=== PATIENT | female | born 1980 | race Caucasian/White ===

== ENCOUNTER 2024-09-14 11:47 | Outpatient (AMB) | payer OTHER, SELFPAY ==
--- NOTE | 2024-09-14 12:07 | MHC.PC.OV ---
Vital Signs 09/14/24 12:15 09/14/24 12:41 Height 5 ft 6 in Weight 179 lb 2 oz BMI 28.9 BP 118/96 H 122/90 H Blood Pressure Location Lt brachial Position Sitting Pulse 84 Pulse Source Pulse Oximeter Temp 98.6 F Temp Source Temporal Artery Scan Pulse Oximetry (%) 97 Oxygen Delivery Method Room Air Intake Visit Reasons: requesting PE Intake Note: Eliza presents in the office today to establish care. Allergies No Known Allergies Allergy (Verified 09/14/24 12:10) Tobacco use date assessed: 09/14/24 Dental Screening Dental Screen Date: 09/14/24 Did you have a dental visit in the last 12 months?: No Did you have a dental problem in the last 6 months where you did not have access to dental care?: No Was dental information given to patient?: Patient has dentist HPI HPI Comments History of Present Illness Details This is a 43-year-old female with no significant past medical history presenting to establish care. Her blood pressure today is initially 118/96 and 122/90 when repeated. She denies history of hypertension. Her father and 2 of her brothers have hypertension. Patient is a nonsmoker. She drinks 1-2 alcoholic beverages per week. She walks 30 minutes per day. She is trying to follow a healthy diet, but she admits to weight gain within the past year. Patient endorses menstrual headaches, but she does not have headaches otherwise. No vision changes, and she had an eye exam recently, and she was told everything was normal. Denies chest pain or shortness of breath. Patient has had irregularity with menstrual cycle recently. She skipped a period, and then got it a couple of days ago. She also had a period that lasted a week and a half. She goes to Gynecology at [facility], and she is due to schedule an appointment. She has never had a mammogram which was ordered as part of today's visit. Patient has skin tags and moles on her face and neck. She has not been examined by Dermatology. 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 She lives with her and her almost 12-year-old son. Receives influenza vaccine. Tdap due and is administered today. ROS: Constitutional: No unexplained weight loss, fever, chills, fatigue or night sweats. Eyes: No vision changes, blurry vision, double vision, eye pain, eye redness, eye discharge. ENT: No hearing loss, sneezing, congestion, runny nose or sore throat. Respiratory: No shortness of breath, cough or sputum production. Cardiovascular: No chest pain, chest pressure or chest discomfort. No palpitations or pedal edema. Gastrointestinal: No anorexia, nausea, vomiting or diarrhea. No abdominal pain or blood in stool. Genitourinary: No dysuria, hematuria, urinary frequency. Neurologic: No dizziness, syncope, unilateral weakness, ataxia, numbness or tingling in the extremities. Musculoskeletal: No muscle pain, back pain, joint pain or swelling. Hematologic/Lymphatics: No bleeding or bruising. No painful lymph nodes. Skin: No rash or itching. Endocrine: No cold or heat intolerance. No polyuria or polydipsia. Psychiatric: No depression or anxiety. No SI/HI. Physical exam: Constitutional: Alert, in no distress. Head: Normocephalic. Eyes: Pupils are equal, round and reactive to light. Extraocular muscles intact. Ear, Nose and Throat: Canals clear. TMs normal. Normal nasal mucosa. No nasal discharge. No oral lesions. Neck: Supple, Full range of motion. No lymphadenopathy. No palpable thyroid masses. Respiratory: Clear to auscultation. Cardiovascular: S1 S2 regular. No murmurs. No carotid bruits. Gastrointestinal: Abdomen soft, non-tender, non-distended. Normal bowel sounds. No palpable masses. Neurologic: No focal neurological deficits. Symmetric patellar reflexes. Moves all extremities spontaneously. Sensation intact bilaterally. Skin: Numerous skin tags on the neck and chest. She has 3 moles on the left side of the neck and chin which are larger than a pencil eraser and have some irregularities with color, but she says they have always looked about the same. Musculoskeletal: No gross deformities. Normal range of motion. Extremities: Warm and well perfused. No clubbing, cyanosis or edema. 3+ peripheral pulses bilaterally. Psychiatric: Normal mood and affect [facility] Medical History (Updated 09/14/24 @ 13:38 by ITZEL Cowan) Obesity Elevated blood pressure reading without diagnosis of hypertension Generalized headaches Routine physical examination Irregular menses Exercise-induced asthma Surgical History (Updated 09/14/24 @ 12:22 by Julieth Brumfield MA) History of laparoscopy Family History (Updated 09/14/24 @ 12:14 by Julieth Brumfield MA) Father Hypertension Hyperlipemia Brother Hypertension Hyperlipemia Mother COPD (chronic obstructive pulmonary disease) Autoimmune disease Colitis Rheumatoid arthritis Social History (Updated 09/14/24 @ 12:14 by Julieth Brumfield MA) Housing: House Alcohol intake: current Patient Tobacco Use Status: Never used Tobacco e-Cigarette/Vaping Use: Never Used Second Hand Smoke Exposure: Yes service: No Current occupational status: employed 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 1. Little interest or pleasure in doing things: not at all 2. Feeling down, depressed, or hopeless: not at all 3. Trouble falling or staying asleep, or sleeping too much: several days 4. Feeling tired or having little energy: several days 5. Poor appetite or overeating: not at all 6. Feeling bad about yourself - or that you are a failure or have let yourself or your family down: not at all 7. Trouble concentrating on things, such as reading the newspaper or watching television: not at all 8. Moving or speaking so slowly that other people could have noticed. Or the opposite - being so fidgety or restless that you have been moving around a lot more than usual: not at all 9. Thoughts that you would be better off or of hurting yourself in some way: not at all Total score: 2 Depression Screening Interpretation: Negative Depression Screening Done: Yes [id number] - PHQ-9 Billing: Yes Source: Developed by Drs. Rusty Singh, Clari Flower, Abhinav Norton and colleagues, with an educational elizabeth from [employer]. Thrive Questionnaire Date Thrive assessed: 09/14/24 I am a: Patient What is your living situation today?: I have a steady place to live Within the past 12 months, did the food you bought not last and you didn't have the money to get more?: Never true Within the past 12 months, did you worry whether your food would run out before you got money to buy more?: Never true Do you have trouble paying for medicines?: No Do you have trouble getting transportation to medical appointments?: No Do you have trouble paying your heating and electricity bill?: No Do you have trouble taking care of your child, family member or friend?: No Do you have trouble with day-to-day activities such as bathing, preparing meals, shopping, managing finances, etc.?: No Are you currently unemployed and looking for a job?: No Are you interested in more education?: No Please select the resources that you would like help with: None Currently or been in a relationship where the following occur: No concerns reported THRIVE Score: 0 AUDIT C Alcohol Use Questionnaire (AUDIT-C) 3. How often do you have six or more drinks on one occasion?: Never Total Score: 0 Score Reviewed/Action Taken: No SHANE-7 AMB Questionnaire SHANE-7 Date SHANE - 7 assessed: 09/14/24 Feeling nervous, anxious, or on edge: 0 = Not at all Not being able to stop or control worryin = Not at all Worrying too much about different things: 0 = Not at all Trouble relaxin = Several days Being so restless that it is hard to sit still: 0 = Not at all Becoming easily annoyed or irritable: 1 = Several days Feeling afraid as if something awful might happen: 0 = Not at all Total SHANE-7 score (0-4 normal; 5-9 mild; 10-14 moderate; 15-21 severe): 2 Source: Developed by Drs. Rusty Singh, Clari Flower, Abhinav Norton and colleagues, with an educational elizabeth from [employer]. SHANE-7 Assessment Billing SHANE-7 Assessment Tool: SHANE-7 Assessment [id number] Physical exam (Primary Care) Vital Signs: Last Vital Signs Temp 98.6 F 09/14/24 12:15 Pulse 84 09/14/24 12:15 BP 118/96 H 09/14/24 12:15 Pulse Ox 97 09/14/24 12:15 Oxygen Delivery Method Room Air 09/14/24 12:15 BMI result Body Mass Index 28.9 Tobacco/Smoking Status: Tobacco use Status Tobacco use date assessed 09/14/24 09/14/24 12:18 Patient Tobacco Use Status Never used Tobacco 09/14/24 12:18 e-Cigarette/Vaping Use Never Used 09/14/24 12:18 PHQ-9: PHQ-9 Score PHQ-9: Total score 2 09/14/24 12:09 Depression Screening Interpretation: Negative Thrive Assessment: Date of Thrive Assessment Date Thrive assessed 09/14/24 09/14/24 12:09 Currently or been in a relationship where the following occur: No concerns reported Immunizations Boostrix Tdap 2.5 Lf unit-8 mcg-5 Lf/0.5 mL intramuscular syringe Performing Provider: ITZEL Cowan Performing Location: [facility] Administered by: Julieth Brumfield MA on 09/14/24 13:01 Dose Route Admin Location Dispensed Lot Number Expiration Date [facility] [employer]eron[employer] Test Engineer 0.5 mL IM Left Deltoid 0.5 mL [id number] 10/14/26 [id number] [employer] VIS Given Date VIS Provided VIS Publication Date 09/14/24 Single Vaccine 20 Eligibility Eligibility Date Funding Source Not [facility] Eligible 09/14/24 Private Coding Level of Care Code New Pt Prev Care 40-64y(44825) Diagnoses Routine physical examination Z00.00 Irregular menses N92.6 Generalized headaches R51.9 Elevated blood pressure reading without diagnosis of hypertension R03.0 Additional Codes SHANE-7 Assessment Billing - SHANE-7 Assessment Tool: SHANE-7 Assessment 98211 ([id number]) PHQ-9 - 25026 - PHQ-9 Billing: Yes ([id number]) Assessment & Plan Assessment & Plan (1) Routine physical examination: Code(s): Z00.00 - Encounter for general adult medical examination without abnormal findings Category: Medical Plan: Patient is seen today for a routine physical. As part of this visit we reviewed the following issues, which are considered and essential part of preventative health in this age group: - Breast Cancer screening - Annual Credit Union Examiner exam - Screening for colon cancer - denies family history. Screening to begin age 4546 years old. - Cholesterol screening - Osteoporosis prevention including calcium/vitamin D intake, weight bearing exercise & smoking cessation - Nutritional and exercise counseling - Counseling of injury prevention including fire prevention, smoke alarms and seat belt usage - Screening for depression - Education about skin cancer - Recommendations about immunizations - Recommendation of an eye exam - Screening for substance abuse (2) Irregular menses: Code(s): N92.6 - Irregular menstruation, unspecified Category: Medical Plan: We discussed the possibility of perimenopause. much less likely given that she endorses menses today. We will check HCG to be cautious. Check TSH, LH, FSH and estrogen. (3) Generalized headaches: Code(s): R51.9 - Headache, unspecified Category: Medical Plan: Associated with menses. Preventative strategies and treatment strategies reviewed. [id number] analgesics are effective for her. (4) Elevated blood pressure reading without diagnosis of hypertension: Code(s): R03.0 - Elevated blood-pressure reading, without diagnosis of hypertension Category: Medical Plan: Patient has a family history of hypertension. Recommended decreasing caffeine and following a low-sodium diet. Exercise to promote healthy weight. Avoid processed foods. Drink plenty of water. Recheck in 4-6 weeks. Check labs. Plan Follow up in 4-6 weeks for a blood pressure check. Orders: Orders MM screening mammo BI Today Z12.31 - Encounter for screening mammogram for malignant neoplasm of breast Vitamin D 25-OH (D2 and D3) Today I10 - Essential (primary) hypertension, M85.80 - Other specified disorders of bone density and structure, unspecified site, N92.6 - Irregular menstruation, unspecified, R51.9 - Headache, unspecified, Z00.00 - Encounter for general adult medical examination without abnormal findings Vitamin B12 Today I10 - Essential (primary) hypertension, N92.6 - Irregular menstruation, unspecified, R51.9 - Headache, unspecified, Z00.00 - Encounter for general adult medical examination without abnormal findings, Z91.89 - Other specified personal risk factors, not elsewhere classified Complete Blood Count no Diff Today I10 - Essential (primary) hypertension, N92.6 - Irregular menstruation, unspecified, R51.9 - Headache, unspecified, Z00.00 - Encounter for general adult medical examination without abnormal findings Lutenizing Hormone Today I10 - Essential (primary) hypertension, N92.6 - Irregular menstruation, unspecified, R51.9 - Headache, unspecified, Z00.00 - Encounter for general adult medical examination without abnormal findings TDaP Immunization Today Z23 - Encounter for immunization TSH reflex Free T4 Today I10 - Essential (primary) hypertension, N92.6 - Irregular menstruation, unspecified, R51.9 - Headache, unspecified, Z00.00 - Encounter for general adult medical examination without abnormal findings Microalbumin, Random (w Creat) Today E11.9 - Type 2 diabetes mellitus without complications, I10 - Essential (primary) hypertension, N92.6 - Irregular menstruation, unspecified, R51.9 - Headache, unspecified, Z00.00 - Encounter for general adult medical examination without abnormal findings Lipid Panel Today E78.5 - Hyperlipidemia, unspecified, I10 - Essential (primary) hypertension, N92.6 - Irregular menstruation, unspecified, R51.9 - Headache, unspecified, Z00.00 - Encounter for general adult medical examination without abnormal findings Comprehensive Met. Panel Today I10 - Essential (primary) hypertension, N92.6 - Irregular menstruation, unspecified, R51.9 - Headache, unspecified, Z00.00 - Encounter for general adult medical examination without abnormal findings Follicle Stimulating Hormone Today I10 - Essential (primary) hypertension, N92.6 - Irregular menstruation, unspecified, R51.9 - Headache, unspecified, Z00.00 - Encounter for general adult medical examination without abnormal findings Estrogen Today I10 - Essential (primary) hypertension, N92.6 - Irregular menstruation, unspecified, R51.9 - Headache, unspecified, Z00.00 - Encounter for general adult medical examination without abnormal findings HCG Quantitative Today N92.6 - Irregular menstruation, unspecified Referrals Dermatology Referral Z12.83 - Encounter for screening for malignant neoplasm of skin
[2024-09-14 12:15] VITALS: BP 118/96; PULSE 84; TEMP 37; O2SAT 97; BMI 28.9
[2024-09-14 12:41] VITALS: BP 122/90
== END 2024-09-14 12:56 | disposition home or self-care (01) ==
LOC: HO.HMCFM 11:47
PROVIDERS: Visit Provider Physician Assistant Medical
DX: Z00.00 Encounter for general adult medical examination without abnormal findings (principal); N92.6 Irregular menstruation, unspecified; R51.9 Headache, unspecified; R03.0 Elevated blood-pressure reading, without diagnosis of hypertension; Z23 Encounter for immunization

== ENCOUNTER → 2024-09-14 11:47 | Outpatient (BNVA) | payer OTHER, SELFPAY | PROVIDERS: Visit Provider Physician Assistant Medical | DX: Z00.00 Encounter for general adult medical examination without abnormal findings (principal); N92.6 Irregular menstruation, unspecified; R51.9 Headache, unspecified; R03.0 Elevated blood-pressure reading, without diagnosis of hypertension; Z23 Encounter for immunization | CPT/HCPCS: 90471; 90715; 96127 ==

== ENCOUNTER 2024-09-18 08:19 | Outpatient (REF) | payer OTHER, SELFPAY ==
[2024-09-18 11:25] LABS: Hematocrit 42.4 % (37.0-47.0); Hemoglobin 14.1 g/dl (12.0-16.0); Mean Corpuscular HGB Conc 33.3 g/dl (31.0-35.0); Mean Corpuscular Hemoglobin 30.1 pg (27.0-33.0); Mean Corpuscular Volume 90.4 fL (80.0-98.0); Mean Platelet Volume 10.3 fL (9.4-12.3); Platelet Count 347 X10*3/uL (160-400); Red Blood Count 4.69 X10*6/uL (4.20-5.50); Red Cell Distribution Width 13.4 % (11.0-16.0); White Blood Count 9.2 X10*3/uL (4.8-10.8)
[2024-09-18 11:41] LABS: Creatinine Urine 199.34 mg/dL
[2024-09-18 12:07] LABS: Vitamin B12 272 pg/mL (200-900)
[2024-09-18 12:17] LABS: Alanine Aminotransferase 25 U/L (0-31); Albumin Level 4.1 g/dL (3.5-5.0); Alkaline Phosphatase 56 U/L (39-117); Anion Gap 12 (12-20); Aspartate Amino Transferase 22 U/L (5-31); Bilirubin Total 0.4 mg/dL (0.0-1.0); Blood Urea Nitrogen 15 mg/dL (9-16); Calcium 9.8 mg/dL (8.4-10.2); Carbon Dioxide 24 mmol/L (22-29); Chloride 106 mmol/L (96-108); Cholesterol 217 mg/dL (<200); Estimated Glomerular Filt Rate > 60; Glucose Random 103 mg/dL (60-115); HCG Quantitative < 2 mIU/mL; HDL Cholesterol 41 mg/dL (>40); LDL Cholesterol Calculated 155 mg/dL (<100); Potassium 3.7 mmol/L (3.3-5.1); Sodium 138 mmol/L (135-145); TSH reflex Free T4 0.94 uIU/mL (0.32-4.0); Total Protein 7.4 g/dL (6.5-8.0); Triglycerides 109 mg/dL (<150)
[2024-09-19 12:28] LABS: Follicle Stimulating Hormone 6.4 mIU/mL; Lutenizing Hormone 2.8 mIU/mL
[2024-09-22 14:38] LABS: Vitamin D 25-OH, D2 <4 ng/mL; Vitamin D 25-OH, D3 13 ng/mL; Vitamin D 25-OH, Total 13 ng/mL (30-100)
[2024-09-22 18:53] LABS: Estrogen 155 pg/mL
== END 2024-09-18 08:20 | disposition home or self-care (01) ==
LOC: HO.WFDLDS 08:19
PROVIDERS: Visit Provider Physician Assistant Medical
DX: Z00.00 Encounter for general adult medical examination without abnormal findings (principal); Z91.89 Other specified personal risk factors, not elsewhere classified; N92.6 Irregular menstruation, unspecified; I10 Essential (primary) hypertension; R51.9 Headache, unspecified; E11.9 Type 2 diabetes mellitus without complications; E78.5 Hyperlipidemia, unspecified; M85.80 Other specified disorders of bone density and structure, unspecified site
CPT/HCPCS: 36415; 80053; 80061; 82043; 82306; 82570; 82607; 82672; 83001; 83002; 84443; 84702; 85027

== ENCOUNTER 2024-10-10 07:51 | Outpatient (REF) | payer OTHER, SELFPAY | END 2024-10-10 07:52 | disposition home or self-care (01) | LOC: HO.MAMMO 07:51 | PROVIDERS: PCP Physician Assistant Medical; Visit Provider Physician Assistant Medical | DX: Z12.31 Encounter for screening mammogram for malignant neoplasm of breast (principal) | CPT/HCPCS: 77063; 77067 ==

== ENCOUNTER → 2024-10-10 08:00 | Outpatient (BNV) | payer OTHER, SELFPAY | PROVIDERS: PCP Physician Assistant Medical; Visit Provider Internal Medicine | DX: Z12.31 Encounter for screening mammogram for malignant neoplasm of breast (principal) | CPT/HCPCS: 77063; 77067 ==

== ENCOUNTER 2024-10-30 10:17 | Outpatient (AMB) | payer OTHER, SELFPAY ==
--- NOTE | 2024-10-30 10:24 | MHC.PC.OV ---
Vital Signs 10/30/24 10:27 10/30/24 10:31 10/30/24 10:36 Height 5 ft 6 in Weight 246 lb BMI 39.7 BP 148/96 H 142/96 H 138/92 H Blood Pressure Location Lt brachial Rt brachial Lt brachial Position Sitting Sitting Sitting Pulse 80 Pulse Source Pulse Oximeter Temp 97.5 F Temp Source Temporal Artery Scan Pulse Oximetry (%) 96 Oxygen Delivery Method Room Air Intake Visit Reasons: recheck HTN Intake Note: Eliza presents in the office today for hypertension check. Allergies No Known Allergies Allergy (Verified 10/30/24 10:26) Tobacco use date assessed: 10/30/24 Dental Screening Dental Screen Date: 10/30/24 Did you have a dental visit in the last 12 months?: No Did you have a dental problem in the last 6 months where you did not have access to dental care?: No Was dental information given to patient?: Patient has dentist HPI HPI Comments History of Present Illness Details This is a 44-year-old female with a past medical history of impaired fasting glucose, hyperlipidemia, obesity, vitamin-D deficiency and elevated blood pressure returning for follow up. The patient's blood pressure remains elevated today. This is a new diagnosis of hypertension. She has a strong family history of hypertension. She denies headaches aside from menstrual headaches. No chest pain, shortness of breath, dizziness or vision changes. She has cut back on caffeine since her last visit. Vitamin-D deficiency-she is taking 49546 IU weekly, and there is an order to repeat her vitamin-D level. Hyperlipidemia-this was reviewed over the patient portal. Lifestyle modifications were recommended as well as repeating the cholesterol test in 12 weeks. Impaired fasting glucose-no history of prediabetes or diabetes. Her blood sugar was mildly elevated at 103 on her blood work. ROS: Constitutional: No unexplained weight loss, fever, chills or night sweats. Eyes: No vision changes, blurry vision, double vision, eye pain Respiratory: No shortness of breath Cardiovascular: No chest pain, chest pressure or chest discomfort. No palpitations or pedal edema. Neurologic: No dizziness, syncope, unilateral weakness, ataxia, numbness or tingling in the extremities. Physical exam: Constitutional: Alert, in no distress. Respiratory: Clear to auscultation. Cardiovascular: S1 S2 regular. No murmurs. Psychiatric: Normal mood and affect [facility] Medical History (Updated 10/30/24 @ 13:41 by ITZEL Cowan) Essential hypertension Hyperlipidemia IFG (impaired fasting glucose) Vitamin D deficiency Obesity Elevated blood pressure reading without diagnosis of hypertension Generalized headaches Routine physical examination Irregular menses Exercise-induced asthma Surgical History (Updated 09/14/24 @ 12:22 by Julieth Brumfield MA) History of laparoscopy Family History Father Hypertension Hyperlipemia Brother Hypertension Hyperlipemia Mother COPD (chronic obstructive pulmonary disease) Autoimmune disease Colitis Rheumatoid arthritis Social History (Updated 10/30/24 @ 10:27 by Julieth Brumfield MA) Housing: House Alcohol intake: current Patient Tobacco Use Status: Never used Tobacco e-Cigarette/Vaping Use: Never Used Second Hand Smoke Exposure: Yes service: No Current occupational status: employed 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 Current occupational exposures/hazards: No Cognitive needs: No Hearing needs: No Vision needs: No Questionnaire Thrive Questionnaire Date Thrive assessed: 09/11/24 I am a: Patient What is your living situation today?: I have a steady place to live Within the past 12 months, did the food you bought not last and you didn't have the money to get more?: Never true Within the past 12 months, did you worry whether your food would run out before you got money to buy more?: Never true Do you have trouble paying for medicines?: No Do you have trouble getting transportation to medical appointments?: No Do you have trouble paying your heating and electricity bill?: No Do you have trouble taking care of your child, family member or friend?: No Do you have trouble with day-to-day activities such as bathing, preparing meals, shopping, managing finances, etc.?: No Are you currently unemployed and looking for a job?: No Are you interested in more education?: No Please select the resources that you would like help with: None Currently or been in a relationship where the following occur: No concerns reported THRIVE Score: 0 SHANE-7 AMB Questionnaire SHANE-7 Date SHANE - 7 assessed: 09/14/24 Source: Developed by Drs. Rusty Singh, Clari Flower, Abhinav Norton and colleagues, with an educational elizabeth from [employer]. Physical exam (Primary Care) Vital Signs: Last Vital Signs Temp 97.5 F 10/30/24 10:27 Pulse 80 10/30/24 10:27 BP 138/92 H 10/30/24 10:36 Pulse Ox 96 10/30/24 10:27 Oxygen Delivery Method Room Air 10/30/24 10:27 BMI result Body Mass Index 39.7 Tobacco/Smoking Status: Tobacco use Status Tobacco use date assessed 10/30/24 10/30/24 10:32 Patient Tobacco Use Status Never used Tobacco 10/30/24 10:27 e-Cigarette/Vaping Use Never Used 10/30/24 10:27 Thrive Assessment: Date of Thrive Assessment Date Thrive assessed 09/11/24 10/30/24 10:25 Currently or been in a relationship where the following occur: No concerns reported Office Procedures EKG Details: EKG demonstrates normal sinus rhythm with a ventricular rate of 66 beats per minute [id number], Complete Coding Level of Care Code Est Pt Level 4 (39651) Complex EM visit Add On G2211 Diagnoses Essential hypertension I10 Hyperlipidemia E78.5 IFG (impaired fasting glucose) R73.01 Obesity E66.9 Vitamin D deficiency E55.9 CPT Codes EKG - CPT: 60628-[id number], Complete ([id number]) Assessment & Plan Assessment & Plan (1) Essential hypertension: Code(s): I10 - Essential (primary) hypertension Category: Medical Plan: Baseline EKG done today. Recommended low-sodium diet, avoidance of caffeine and cardiovascular exercise to promote healthy weight. Start amlodipine 5 mg daily. Side effects and administration reviewed. Declined BP cuff for home. (2) Hyperlipidemia: Code(s): E78.5 - Hyperlipidemia, unspecified Category: Medical Plan: Recommended the Mediterranean diet. Avoid full fat dairy products and red meat. Increase lean proteins and fibrous fruits and veggies. Avoid smoking. We discussed that elevated cholesterol is a risk factor for cardiovascular disease. (3) IFG (impaired fasting glucose): Code(s): R73.01 - Impaired fasting glucose Category: Medical Plan: She will return for blood work in 3 weeks at which time we will also check a hemoglobin A1c. (4) Obesity: Code(s): E66.9 - Obesity, unspecified Category: Medical Plan: See above notes regarding lifestyle modifications. (5) Vitamin D deficiency: Code(s): E55.9 - Vitamin D deficiency, unspecified Category: Medical Plan: Continue supplement. Rechecked vitamin-D level as planned. Plan Follow up in 4 weeks for a blood pressure check. Orders: Orders AMB EKG-In Office Today I10 - Essential (primary) hypertension Medications: New amlodipine 5 mg PO DAILY 30 tabs 1RF
[2024-10-30 10:27] VITALS: BP 148/96; PULSE 80; TEMP 36.4; O2SAT 96; BMI 39.7
[2024-10-30 10:31] VITALS: BP 142/96
[2024-10-30 10:36] VITALS: BP 138/92
== END 2024-10-30 11:25 | disposition home or self-care (01) ==
LOC: HO.HMCFM 10:18
PROVIDERS: PCP Physician Assistant Medical; Visit Provider Physician Assistant Medical
DX: I10 Essential (primary) hypertension (principal); E66.9 Obesity, unspecified; Z68.39 Body mass index [BMI] 39.0-39.9, adult; E78.5 Hyperlipidemia, unspecified; R73.01 Impaired fasting glucose; E55.9 Vitamin D deficiency, unspecified

== ENCOUNTER → 2024-10-30 10:17 | Outpatient (BNVA) | payer OTHER, SELFPAY | PROVIDERS: PCP Physician Assistant Medical; Visit Provider Physician Assistant Medical | DX: I10 Essential (primary) hypertension (principal) | CPT/HCPCS: 93005 ==

== ENCOUNTER 2024-11-27 11:21 | Outpatient (AMB) | payer OTHER, SELFPAY ==
--- NOTE | 2024-11-27 11:24 | MHC.PC.OV ---
Vital Signs 11/27/24 11:27 Height 5 ft 6 in Weight 245 lb 6 oz BMI 39.6 BP 118/90 H Blood Pressure Location Lt brachial Position Sitting Pulse 85 Pulse Source Pulse Oximeter Temp 98.6 F Temp Source Temporal Artery Scan Pulse Oximetry (%) 97 Oxygen Delivery Method Room Air Intake Visit Reasons: recheck HTN Intake Note: Eliza presents in the office for a recheck for hypertension. Allergies No Known Allergies Allergy (Verified 11/27/24 11:26) Medication List - Last Reconciled 11/27/24 by ITZEL Cowan amlodipine 7.5 mg PO DAILY cholecalciferol (vitamin D3) 1,250 mcg PO QWEEK 12 weeks Tobacco use date assessed: 11/27/24 Dental Screening Dental Screen Date: 11/27/24 Did you have a dental visit in the last 12 months?: No Did you have a dental problem in the last 6 months where you did not have access to dental care?: No Was dental information given to patient?: Patient declined HPI HPI Comments History of Present Illness Details This is a 44-year-old female with a past medical history of impaired fasting glucose, hyperlipidemia, obesity, vitamin-D deficiency and elevated blood pressure returning for follow up. Hypertension-she started amlodipine 1 month ago. Denies side effects. Blood pressure improved, but diastolic BP is still elevated. She has a strong family history of hypertension. She denies headaches aside from menstrual headaches. No chest pain, shortness of breath, dizziness or vision changes. She has cut back on caffeine since her last visit. Vitamin-D deficiency-she is taking 83252 IU weekly, and there is an order to repeat her vitamin-D level. Hyperlipidemia-this was reviewed over the patient portal. Lifestyle modifications were recommended as well as repeating the cholesterol test in 12 weeks. Impaired fasting glucose-no history of prediabetes or diabetes. Her blood sugar was mildly elevated at 103 on her blood work. ROS: Constitutional: No unexplained weight loss, fever, chills or night sweats. Eyes: No vision changes, blurry vision, double vision, eye pain Respiratory: No shortness of breath Cardiovascular: No chest pain, chest pressure or chest discomfort. No palpitations or pedal edema. Neurologic: No dizziness, syncope, unilateral weakness, ataxia, numbness or tingling in the extremities. Physical exam: Constitutional: Alert, in no distress. Respiratory: Clear to auscultation. Cardiovascular: S1 S2 regular. No murmurs. Psychiatric: Normal mood and affect Extremities: No edema PFSH Medical History (Updated 10/30/24 @ 13:41 by ITZEL Cowan) Essential hypertension Hyperlipidemia IFG (impaired fasting glucose) Vitamin D deficiency Obesity Elevated blood pressure reading without diagnosis of hypertension Generalized headaches Routine physical examination Irregular menses Exercise-induced asthma Surgical History (Updated 09/14/24 @ 12:22 by Julieth Brumfield MA) History of laparoscopy Family History Father Hypertension Hyperlipemia Brother Hypertension Hyperlipemia Mother COPD (chronic obstructive pulmonary disease) Autoimmune disease Colitis Rheumatoid arthritis Social History (Updated 11/27/24 @ 11:26 by Julieth Brumfield MA) Housing: House Alcohol intake: current Patient Tobacco Use Status: Never used Tobacco e-Cigarette/Vaping Use: Never Used Second Hand Smoke Exposure: Yes service: No Current occupational status: employed 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 Current occupational exposures/hazards: No Cognitive needs: No Hearing needs: No Vision needs: No Questionnaire Thrive Questionnaire Date Thrive assessed: 09/11/24 I am a: Patient What is your living situation today?: I have a steady place to live Within the past 12 months, did the food you bought not last and you didn't have the money to get more?: Never true Within the past 12 months, did you worry whether your food would run out before you got money to buy more?: Never true Do you have trouble paying for medicines?: No Do you have trouble getting transportation to medical appointments?: No Do you have trouble paying your heating and electricity bill?: No Do you have trouble taking care of your child, family member or friend?: No Do you have trouble with day-to-day activities such as bathing, preparing meals, shopping, managing finances, etc.?: No Are you currently unemployed and looking for a job?: No Are you interested in more education?: No Please select the resources that you would like help with: None Currently or been in a relationship where the following occur: No concerns reported THRIVE Score: 0 SHANE-7 AMB Questionnaire SHANE-7 Date SHANE - 7 assessed: 09/14/24 Source: Developed by Drs. Rusty Singh, Clari Flower, Abhinav Norton and colleagues, with an educational elizabeth from [employer]. Physical exam (Primary Care) Vital Signs: Last Vital Signs Temp 98.6 F 11/27/24 11:27 Pulse 85 11/27/24 11:27 BP 118/90 H 11/27/24 11:27 Pulse Ox 97 11/27/24 11:27 Oxygen Delivery Method Room Air 11/27/24 11:27 BMI result Body Mass Index 39.6 Tobacco/Smoking Status: Tobacco use Status Tobacco use date assessed 11/27/24 11/27/24 11:30 Patient Tobacco Use Status Never used Tobacco 11/27/24 11:30 e-Cigarette/Vaping Use Never Used 11/27/24 11:30 Thrive Assessment: Date of Thrive Assessment Date Thrive assessed 09/11/24 11/27/24 11:30 Currently or been in a relationship where the following occur: No concerns reported Coding Level of Care Code Est Pt Level 4 (92170) Complex EM visit Add On G2211 Diagnoses Essential hypertension I10 Hyperlipidemia E78.5 IFG (impaired fasting glucose) R73.01 Obesity E66.9 Vitamin D deficiency E55.9 Assessment & Plan Assessment & Plan (1) Essential hypertension: Code(s): I10 - Essential (primary) hypertension Category: Medical Plan: Recommended low-sodium diet, avoidance of caffeine and cardiovascular exercise to promote healthy weight. Increase amlodipine to 7.5 mg daily. She will send blood pressure readings over the portal in 2 weeks. I gave her a prescription for a blood pressure cuff. Side effects and administration reviewed. (2) Hyperlipidemia: Code(s): E78.5 - Hyperlipidemia, unspecified Category: Medical Plan: Recommended the Mediterranean diet. Avoid full fat dairy products and red meat. Increase lean proteins and fibrous fruits and veggies. Avoid smoking. We discussed that elevated cholesterol is a risk factor for cardiovascular disease. (3) IFG (impaired fasting glucose): Code(s): R73.01 - Impaired fasting glucose Category: Medical Plan: She will return for blood work as plan to check hemoglobin A1c. (4) Obesity: Code(s): E66.9 - Obesity, unspecified Category: Medical Plan: See above notes regarding lifestyle modifications. (5) Vitamin D deficiency: Code(s): E55.9 - Vitamin D deficiency, unspecified Category: Medical Plan: Continue supplement. Rechecked vitamin-D level as planned. Plan Follow up in 6 weeks for a blood pressure check. Medications: New miscellaneous medical supply (Blood Pressure Cuff) As directed 1 ea 0RF R03.0 - Elevated blood-pressure reading, without diagnosis of hypertension
[2024-11-27 11:27] VITALS: BP 118/90; PULSE 85; TEMP 37; O2SAT 97; BMI 39.6
== END 2024-11-27 11:57 | disposition home or self-care (01) ==
LOC: HO.HMCFM 11:22
PROVIDERS: PCP Physician Assistant Medical; Visit Provider Physician Assistant Medical
DX: I10 Essential (primary) hypertension (principal); E78.5 Hyperlipidemia, unspecified; Z68.39 Body mass index [BMI] 39.0-39.9, adult; E66.9 Obesity, unspecified; R73.01 Impaired fasting glucose; E55.9 Vitamin D deficiency, unspecified

== ENCOUNTER 2025-01-17 07:47 | Outpatient (REF) | payer OTHER, SELFPAY ==
[2025-01-17 11:46] LABS: Cholesterol 226 mg/dL (<200); HDL Cholesterol 48 mg/dL (>40); Triglycerides 118 mg/dL (<150)
[2025-01-17 11:49] LABS: Hemoglobin A1C 145.6240 umol/L; Total Hemoglobin (HGBA1C) 3513.5054 umol/L
[2025-01-23 02:18] LABS: Vitamin D 25-OH, D2 <4 ng/mL; Vitamin D 25-OH, D3 36 ng/mL; Vitamin D 25-OH, Total 36 ng/mL (30-100)
== END 2025-01-17 07:48 | disposition home or self-care (01) ==
LOC: HO.WFDLDS 07:47
PROVIDERS: Visit Provider Physician Assistant Medical
DX: R73.01 Impaired fasting glucose (principal); E55.9 Vitamin D deficiency, unspecified; E78.5 Hyperlipidemia, unspecified
CPT/HCPCS: 36415; 80061; 82306; 83036

== ENCOUNTER 2025-01-25 11:34 | Outpatient (AMB) | payer OTHER, SELFPAY ==
--- NOTE | 2025-01-25 11:36 | A.OFFPC_ITS ---
Vital Signs 01/25/25 11:39 Height 5 ft 6 in Weight 245 lb 4 oz BMI 39.6 BP 118/80 Blood Pressure Location Lt brachial Position Sitting Respiration 15 Pulse 94 Pulse Source Pulse Oximeter Temp 97.4 F Temp Source Temporal Artery Scan Pulse Oximetry (%) 97 Oxygen Delivery Method Room Air Intake Visit Reasons: BP check 6 weeks Intake Note: Eliza presents in the office today for a 6 week blood pressure check. Allergies No Known Allergies Allergy (Verified 01/25/25 11:38) Tobacco use date assessed: 01/25/25 Dental Screening Dental Screen Date: 01/25/25 Did you have a dental visit in the last 12 months?: Yes Did you have a dental problem in the last 6 months where you did not have access to dental care?: No Was dental information given to patient?: Patient has dentist HPI HPI Comments History of Present Illness Details This is a 44-year-old female with a past medical history of impaired fasting glucose, hyperlipidemia, obesity, vitamin-D deficiency and elevated blood pressure returning for follow up. Hypertension-titrated amlodipine to 7.5 mg daily. Blood pressure is controlled now. it. Vitamin-D deficiency-completed 12 week course of high-dose vitamin D3. Vitamin- D level is normal at 36. She is transitioning to a daily supplement. She has hyperlipidemia and a new diagnosis of prediabetes with a hemoglobin A1c of 5.9%. Denies family history of diabetes. She admits that she does not have time to exercise. She is very busy throughout the day. She works and she is a mother. She admits that she could do better with her diet, but her schedule is limiting. ROS: Constitutional: No unexplained weight loss, fever, chills or night sweats. Eyes: No vision changes, blurry vision, double vision, eye pain Respiratory: No shortness of breath Cardiovascular: No chest pain, chest pressure or chest discomfort. No palpitations or pedal edema. Neurologic: No dizziness, syncope, unilateral weakness, ataxia, numbness or tingling in the extremities. Physical exam: Constitutional: Alert, in no distress. Psychiatric: Normal mood and affect Extremities: No edema [facility] Medical History (Updated 01/18/25 @ 22:26 by ITZEL Cowan) Prediabetes Essential hypertension Hyperlipidemia IFG (impaired fasting glucose) Vitamin D deficiency Obesity Elevated blood pressure reading without diagnosis of hypertension Generalized headaches Routine physical examination Irregular menses Exercise-induced asthma Surgical History (Updated 09/14/24 @ 12:22 by Julieth Brumfield MA) History of laparoscopy Family History Father Hypertension Hyperlipemia Brother Hypertension Hyperlipemia Mother COPD (chronic obstructive pulmonary disease) Autoimmune disease Colitis Rheumatoid arthritis Social History (Updated 01/25/25 @ 11:39 by Julieth Brumfield CMA) Housing: House Alcohol intake: current Patient Tobacco Use Status: Never used Tobacco e-Cigarette/Vaping Use: Never Used Second Hand Smoke Exposure: Yes service: No Current occupational status: employed 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 Current occupational exposures/hazards: No Cognitive needs: No Hearing needs: No Vision needs: No Questionnaire Thrive Questionnaire Date Thrive assessed: 09/11/24 I am a: Patient What is your living situation today?: I have a steady place to live Within the past 12 months, did the food you bought not last and you didn't have the money to get more?: Never true Within the past 12 months, did you worry whether your food would run out before you got money to buy more?: Never true Do you have trouble paying for medicines?: No Do you have trouble getting transportation to medical appointments?: No Do you have trouble paying your heating and electricity bill?: No Do you have trouble taking care of your child, family member or friend?: No Do you have trouble with day-to-day activities such as bathing, preparing meals, shopping, managing finances, etc.?: No Are you currently unemployed and looking for a job?: No Are you interested in more education?: No Please select the resources that you would like help with: None Currently or been in a relationship where the following occur: No concerns reported THRIVE Score: 0 SHANE-7 AMB Questionnaire SHANE-7 Date SHANE - 7 assessed: 09/14/24 Source: Developed by Drs. Rusty Singh, Clari Flower, Abhinav Norton and colleagues, with an educational elizabeth from [employer] Physical exam (Primary Care) Vital Signs: Last Vital Signs Temp 97.4 F 01/25/25 11:39 Pulse 94 01/25/25 11:39 Resp 15 01/25/25 11:39 BP 118/80 01/25/25 11:39 Pulse Ox 97 01/25/25 11:39 Oxygen Delivery Method Room Air 01/25/25 11:39 BMI result Body Mass Index 39.6 Tobacco/Smoking Status: Tobacco use Status Tobacco use date assessed 01/25/25 01/25/25 11:43 Patient Tobacco Use Status Never used Tobacco 01/25/25 11:39 e-Cigarette/Vaping Use Never Used 01/25/25 11:39 Thrive Assessment: Date of Thrive Assessment Date Thrive assessed 09/11/24 01/25/25 11:38 Currently or been in a relationship where the following occur: No concerns reported Coding Level of Care Code Est Pt Level 4 (64482) Complex EM visit Add On G2211 Diagnoses Essential hypertension I10 Hyperlipidemia E78.5 Vitamin D deficiency E55.9 Prediabetes R73.03 Assessment & Plan Assessment & Plan (1) Essential hypertension: Code(s): I10 - Essential (primary) hypertension Category: Medical Plan: Recommended low-sodium diet, avoidance of caffeine and cardiovascular exercise to promote healthy weight. Continue amlodipine to 7.5 mg daily. (2) Hyperlipidemia: Code(s): E78.5 - Hyperlipidemia, unspecified Category: Medical Plan: Recommended the Mediterranean diet. Avoid full fat dairy products and red meat. Increase lean proteins and fibrous fruits and veggies. Avoid smoking. We discussed that elevated cholesterol is a risk factor for cardiovascular disease. Recheck in 4 months. (3) Vitamin D deficiency: Code(s): E55.9 - Vitamin D deficiency, unspecified Category: Medical Plan: Continue supplement. Recheck in 4 months. (4) Prediabetes: Code(s): R73.03 - Prediabetes Category: Medical Plan: We discussed complications of developing diabetes. Recommended annual eye exam. Reviewed treatment options including working on lifestyle modifications, seeing a dietitian and medications including metformin and GLP 1. She knows that her insurance does not cover the GLP 1, and it is not affordable [id number]. She would like to defer starting metformin. She will recheck her labs in 4 months. Plan Schedule physical in 6 months. Orders: Orders Hemoglobin A1c 4 Months E55.9 - Vitamin D deficiency, unspecified, E66.9 - Obesity, unspecified, E78.5 - Hyperlipidemia, unspecified, I10 - Essential (primary) hypertension, R73.03 - Prediabetes, R73.9 - Hyperglycemia, unspecified Vitamin D 25-OH (D2 and D3) 4 Months E55.9 - Vitamin D deficiency, unspecified, E66.9 - Obesity, unspecified, E78.5 - Hyperlipidemia, unspecified, I10 - E ssential (primary) hypertension, R73.03 - Prediabetes Lipid Panel 4 Months E55.9 - Vitamin D deficiency, unspecified, E66.9 - Obesity, unspecified, E78.5 - Hyperlipidemia, unspecified, I10 - Essential (primary) hypertension, R73.03 - Prediabetes Basic Metabolic Panel 4 Months E55.9 - Vitamin D deficiency, unspecified, E66.9 - Obesity, unspecified, E78.5 - Hyperlipidemia, unspecified, I10 - Essential (primary) hypertension, R73.03 - Prediabetes Medications: New amlodipine 7.5 mg (1.5 x 5 mg) PO DAILY 135 tabs 3RF Refilled cholecalciferol (vitamin D3) 25 mcg PO DAILY 90 caps 1RF
[2025-01-25 11:39] VITALS: BP 118/80; PULSE 94; RESP 15; TEMP 36.3; O2SAT 97; BMI 39.6
== END 2025-01-25 12:22 | disposition home or self-care (01) ==
LOC: HO.HMCFM 11:34
PROVIDERS: PCP Physician Assistant Medical; Visit Provider Physician Assistant Medical
DX: I10 Essential (primary) hypertension (principal); E78.5 Hyperlipidemia, unspecified; E55.9 Vitamin D deficiency, unspecified; R73.03 Prediabetes